=== PATIENT | male | born 1940 | race Caucasian/White ===

== ENCOUNTER 2018-10-07 22:12 | Emergency (ER) | payer MEDICARE, OTHER ==
--- NOTE | 2018-10-07 22:47 | RAD ---
RIGHT SHOULDER: 10/07/18 Three views. HISTORY: Right shoulder pain. Humeral head is normally positioned. AC joint normally aligned. Mild spurring at the AC joint. Minima l degenerative change at the glenohumeral joint. No fracture or dislocation. IMPRESSION: Mild degenerative change. No acute abnormality. POS: [facility]
== END 2018-10-07 23:27 | disposition home or self-care (01) ==
LOC: SCSER 22:12
DX: M25.511 Pain in right shoulder (principal); G89.29 Other chronic pain; F17.210 Nicotine dependence, cigarettes, uncomplicated

== ENCOUNTER 2019-02-09 13:12 | Emergency (ER) | payer MEDICARE, OTHER ==
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
[2019-02-09] MEDS ORDERED: traMADol HCl 50 MG TAB ONE (14:34)
== END 2019-02-09 16:06 | disposition home or self-care (01) ==
LOC: ERS 13:12
DX: S23.41XA Sprain of ribs, initial encounter (principal); E78.5 Hyperlipidemia, unspecified; I10 Essential (primary) hypertension; F17.210 Nicotine dependence, cigarettes, uncomplicated; Z79.899 Other long term (current) drug therapy; V89.2XXA Person injured in unspecified motor-vehicle accident, traffic, initial encounter
CPT/HCPCS: 71046

== ENCOUNTER 2019-04-12 08:26 | Outpatient (CLI) | payer MEDICARE, OTHER ==
--- NOTE | 2019-04-12 09:31 | CT ---
CT OF THE ABDOMEN AND PELVIS WITH IV CONTRAST INDICATION: Bowel movements every 4-6 days with weight loss and loss of appetite COMPARISON: None FINDINGS: ABDOMEN: Lung bases: There is prominent bulla involving the right lower extremity. Liver: No focal lesion. Gallbladder: Contracted Pancreas: Normal. Adrenal glands: Normal. Spleen: There is a new subcapsular hypodense collection measuring 6.5 cm in length and 0.8 cm in widt h. There are numerous calcified granuloma within the spleen. Kidneys and ureters: There are bilateral renal cysts Vasculature: There are moderate vascular calcifications seen involving the visualized vasculature. Lymph nodes:No lymphadenopathy. Free fluid in abdomen:There are partially calcified nodule seen involving the anterior mid abdomen, s ubjacent to the umbilicus, within the omentum, measuring 2.8 cm. Additional calcified nodule seen within the left aspect of the omentum on image 51 series 2. Additional noncalcified area of fat necro sis is seen on the right aspect of the omentum on image 48 of series 2. Additional calcifications seen involving the right aspect of the omentum on image 57 of series 2. PELVIS: Small and large bowel: There is a mild amount retained stool within the colon. Appendix:Normal Bladder: Mild bladder wall thickening with perivesicular fat stranding Rectal and perirectal soft tissues:Normal. Reproductive structures: The prostate is enlarged measuring 5.3 cm Free fluid in pelvis: No free fluid is evident. Lymphadenopathy pelvis: No lymphadenopathy is evident. Osseous structures: No acute osseous abnormality. No destructive osteolytic or osteoblastic lesion i s identified. There is scattered degenerative and osteoarthritic changes. Soft tissues:Normal. IMPRESSION: 1. Mild bladder wall thickening with perivesicular fat stranding is suspicious for cystitis. 2. Hypodense subcapsular splenic collection. This is nonspecific but can be seen following a traumati c injury. Recommend correlation with patient's history. May reflect a resolving subcapsular hematoma. 3. Scattered areas of omental infarcts involving the anterior abdomen. These can also be related to p rior trauma or inflammation. 4. Bullous emphysematous change seen involving the right lung base. 5. Prostate enlargement
== END 2019-04-12 08:27 | disposition home or self-care (01) ==
LOC: SCSCT 08:26
PROVIDERS: ATTEND Family Medicine
DX: R63.0 Anorexia (principal); R63.4 Abnormal weight loss; R19.8 Other specified symptoms and signs involving the digestive system and abdomen; N32.89 Other specified disorders of bladder; N40.0 Benign prostatic hyperplasia without lower urinary tract symptoms; J43.9 Emphysema, unspecified; K55.069 Acute infarction of intestine, part and extent unspecified
CPT/HCPCS: 74177

== ENCOUNTER 2019-06-04 14:19 | Outpatient (CLI) | payer MEDICARE, OTHER ==
--- NOTE | 2019-06-04 14:46 | RAD ---
EXAM: Chest 2 views: HISTORY: Pneumonia COMPARISON: 02/09/2019 FINDINGS: There is a normal-sized cardiomediastinal silhouette. Atherosclerotic calcifications are seen in the aorta. Calcified granuloma is seen in the right lower lobe. Bullous changes are seen in the right lung base. The bones are unremarkable. IMPRESSION: Stable exam
== END 2019-06-04 14:20 | disposition home or self-care (01) ==
LOC: SCSRAD 14:19
PROVIDERS: ATTEND Family Medicine
DX: J18.9 Pneumonia, unspecified organism (principal)
CPT/HCPCS: 36415; 71046; 80053; 85025

== ENCOUNTER 2019-06-08 05:48 | Day surgery (SDC) | payer MEDICARE, OTHER ==
[2019-06-07 12:26] VITALS: BMI 26.7
[2019-06-08 07:07] LABS: #Lymphocytes 1.3 thou/uL (1.20-3.40); #Monocytes 0.6 thou/uL (0.11-0.59); %Basophils 0.2 % (0.0-1.0); %Eosinophils 0.8 % (0.0-10.0); %Lymphocytes 22.2 % (21.0-51.0); %Monocytes 9.9 % (0.0-10.0); %Neutrophils 66.9 % (42.0-75.0); Hemoglobin 10.7 g/dL (14.0-18.0); Mean Corpuscular HGB CONC 33.5 g/dL (32.0-36.0); Mean Corpuscular Hemoglobin 34.7 pg (27.0-31.0); Mean Platelet Volume 7.3 fL (7.4-10.4); Platelet Count 258 thou/uL (130-400); RBC Distribution Width 12.9 % (11.5-14.5); White Blood Cell (WBC) Count 5.9 thou/uL (4.8-10.8)
[2019-06-08 07:09] LABS: INR-International Normal Ratio 1.2; PTT 38.6 SEC (22.9-36.1); Prothrombin Time 14.7 SEC (12.0-14.7)
[2019-06-08 07:22] LABS: Anion Gap 12 mmol/L (10-20); BUN (Urea Nitrogen) 42 mg/dL (8.4-25.7); Calc. Creatinine Clearance 38 mL/min (70-130); Calcium 8.9 mg/dL (7.8-10.44); Carbon Dioxide 25 mmol/L (23-31); Chloride 104 mmol/L (98-107); Estimated GFR-MDRD 43; Glucose 97 mg/dL (83-110); Potassium 4.6 mmol/L (3.5-5.1); Sodium 136 mmol/L (136-145)
[2019-06-08] MEDS ORDERED: PROPOFOL 20 ML ONE (07:25)
--- NOTE | 2019-06-08 11:22 | OP ---
DATE OF PROCEDURE: 06/08/2019 PROCEDURE PERFORMED: Cardioversion. REASON FOR PROCEDURE: Mr. Cenetno is an 78-year-old gentleman with history of newly found atypical atrial flutter, noted in 04/2019. He has been placed on Eliquis. DIANNA prior to the procedure demonstrates no intracardiac clots, moderate left atrial enlargement. DESCRIPTION OF PROCEDURE: The patient received propofol by anesthesia specialist. After adequate level of sedation achieved, a standard external pads were attached to the patient, through which a synchronized 150 joule delivered, which promptly converted the patient back to sinus rhythm. Rate about 84 beats per minute. First-degree AV block with occasional second-degree Mobitz type I block is seen. CONCLUSION: Successful cardioversion. PLAN: Continue anticoagulation with apixaban 2.5 twice a day as well as aspirin. Monitor for recurrent arrhythmia. Consider anticoagulation agents versus ablation if recurrent. Job ID: [id number]
--- NOTE | 2019-06-09 15:57 | ECHO ---
DATE OF PROCEDURE: 06/08/19 REFERRING PHYSICIAN: Dr. Lou REASON FOR PROCEDURE: The patient is an 78-year-old gentleman with history of atypical atrial flutter. First noted in 2009. He has preserved LVEF on a previous scan before and has initiated Eliquis for anticoagulatio n. To have DIANNA To rule out intracardiac clots prior to a planned cardioversion to assess the cardiac structures. PROCEDURE: The patient received Propofol by Anesthesia specialist. After adequate level of sedation achieved, a standard transesophageal echocardiogram probe was passed into the esophagus without diff iculty. Patient tolerated the procedure well, no complications noted. RESULTS: Left atrium is moderately enlarged about 4.7 cm in horizontal diameter. The left atrial appendage we ll visualized contains no clots. The left atrial appendage velocities are reduced about 30 to 40 cm/s . Four out of four pulmonary veins were seen without stenosis. The mitral valve has mild regurgitati on only. Tricuspid valve has mild regurgitation. The pulmonary valve appears to be normal. The aorti c valve has three leaflets without regurgitation or stenosis. Mild thickening noted only. Left ventricular systolic function is preserved. LV size is normal. Wall thickness normal. The right sided chamber is nondilated. Interatrial and interventricular septum is free of defect. Pericardial s pace without effusion. The visualized portion of ascending and descending aorta without aneurysm or dissection. The descending aorta with significant adherent circumferential atheroma noted on it. CONCLUSION: 1. No intracardiac clots. 2. Moderate left atrial enlargement. 3. Mild mitral regurgitation and tricuspid regurgitation only. 4. Normal left ventricular systolic function. PLAN: Proceed with cardioversion.
== END 2019-06-08 09:57 | disposition home or self-care (01) ==
LOC: CCL 05:48
PROVIDERS: ATTEND Internal Medicine Cardiovascular Disease
PROC: 5A2204Z Restoration of Cardiac Rhythm, Single (ICD-10-PCS; principal; 2019-06-08)
PROC: B24BZZ4 Ultrasonography of Heart with Aorta, Transesophageal (ICD-10-PCS; 2019-06-08)
DX: I48.4 Atypical atrial flutter (principal); I44.1 Atrioventricular block, second degree; I44.0 Atrioventricular block, first degree; I08.1 Rheumatic disorders of both mitral and tricuspid valves; I25.10 Atherosclerotic heart disease of native coronary artery without angina pectoris; I25.82 Chronic total occlusion of coronary artery; J44.9 Chronic obstructive pulmonary disease, unspecified; G47.33 Obstructive sleep apnea (adult) (pediatric); I10 Essential (primary) hypertension; E78.00 Pure hypercholesterolemia, unspecified; Z87.891 Personal history of nicotine dependence; Z79.01 Long term (current) use of anticoagulants; Z79.82 Long term (current) use of aspirin; Z79.899 Other long term (current) drug therapy; Z88.0 Allergy status to penicillin
CPT/HCPCS: 80048; 85025; 85610; 85730; 92960; 93005; 93010; 93312; J2704

== ENCOUNTER 2019-08-28 09:18 | Inpatient (IN) | payer MEDICARE, OTHER ==
[2019-08-28 10:01] LABS: #Monocytes 0.5 thou/uL (0.11-0.59); #Neutrophils 2.7 thou/uL (1.40-6.50); %Basophils 0.7 % (0.0-1.0); %Monocytes 12.3 % (0.0-10.0); Hemoglobin 6.5 g/dL (14.0-18.0); Red Blood Cell (RBC) Count 1.89 mill/uL (4.70-6.10); White Blood Cell (WBC) Count 4.3 thou/uL (4.8-10.8)
[2019-08-28 10:12] LABS: ALT (SGPT) 7 U/L (8-55); AST (SGOT) 14 U/L (5-34); Alkaline Phosphatase 43 U/L (40-110); Anion Gap 14 mmol/L (10-20); BUN (Urea Nitrogen) 27 mg/dL (8.4-25.7); Bilirubin, Total 0.4 mg/dL (0.2-1.2); Calc. Creatinine Clearance 0 mL/min (70-130); Calcium 8.3 mg/dL (7.8-10.44); Carbon Dioxide 22 mmol/L (23-31); Chloride 107 mmol/L (98-107); Estimated GFR-MDRD 45; Globulin 2.2 g/dL (2.4-3.5); Glucose 110 mg/dL (83-110); Lipase 22 U/L (8-78); Potassium 4.5 mmol/L (3.5-5.1); Protein, Total 6.2 g/dL (5.8-8.1); Sodium 138 mmol/L (136-145)
[2019-08-28 10:24] LABS: MDiff Complete? YES; Macrocytosis SLIGHT = 6-15 cells (100X) (0-5/hpf); Mean Corpuscular HGB CONC 32.2 g/dL (32.0-36.0); Mean Corpuscular Hemoglobin 34.1 pg (27.0-31.0); Mean Platelet Volume 6.6 fL (7.4-10.4); Platelet Count 254 thou/uL (130-400); RBC Distribution Width 12.8 % (11.5-14.5)
[2019-08-28] MEDS ORDERED: Pantoprazole 40 MG VIAL ONE (10:26)
[2019-08-28] MEDS ORDERED: Acetaminophen 325 MG TAB PO PRN (11:15)
[2019-08-28] MEDS ORDERED: Ondansetron PF 4 MG/2 ML Vial IVP PRN (11:15)
[2019-08-28 15:07] VITALS: BMI 28.3
--- NOTE | 2019-08-28 21:13 | HP ---
CHIEF COMPLAINT: Feeling dizzy and weak. HISTORY OF PRESENT ILLNESS: The patient is an 78-year-old male with past medical history of hyperlipidemia, hypertension, peripheral vascular disease, and BPH, who presented to his PCP' office yesterday with concerns of feeling dizzy and weak. Blood work was drawn and the patient was sent home. He was called today from his PCP office and was asked to go to the emergency department since his hemoglobin level was found to be low. In the ER, the patient was found to be pale, but in no acute distress, and his hemoglobin level was found to be 6.5. 2 units of packed RBCs were given in the emergency department. The patient complained of nausea and vomiting, but denied any hematemesis. He also denies any melena, but says that he was not paying attention. He does not recall when was the last time he underwent a colonoscopy. He denies chest pain, palpitations, shortness of breath, or syncope. REVIEW OF SYSTEMS: Negative except as noted in HPI. PAST MEDICAL HISTORY: As noted above. PAST SURGICAL HISTORY: This includes appendectomy, hernia repair, vasectomy, and circumcision. SOCIAL HISTORY: The patient drinks socially every week, denies illicit drug use, he is currently a half pack a day tobacco smoker. ALLERGIES: PENICILLIN. PHYSICAL EXAMINATION: GENERAL: The patient is alert and oriented x3. HEENT: His head is normocephalic and atraumatic. Extraocular muscles are intact. Conjunctiva is pale. NECK: Supple. CHEST: Clear to auscultation bilaterally. CARDIOVASCULAR: Revealed regular rate and rhythm. No murmurs, rubs, or gallops, normal S1, S2. ABDOMEN: Soft, nontender, nondistended. EXTREMITIES: Showing no peripheral edema. NEUROLOGICAL: Intact. ASSESSMENT AND PLAN: 1. Anemia that is symptomatic. Unclear if this is due to occult bleeding. Protonix drip was initiated and I have discussed the case with Dr. Philippe Magaña who agreed to consult. We should recheck hemoglobin tomorrow after his transfusions. 2. Possible occult gastrointestinal bleeding. 3. Hyperlipidemia. 4. Hypertension. 5. Benign prostatic hypertrophy. Job ID: [id number]
--- NOTE | 2019-08-29 00:51 | CON ---
DATE OF CONSULTATION: 08/28/2019 REASON FOR CONSULTATION: Severe anemia. HISTORY OF PRESENT ILLNESS: Gianluca Centeno is an 78-year-old man who was admitted to the hospital earlier today, sent from his primary care physician's office for severe symptomatic anemia. He has previously seen my colleague, Dr. Rincon, for a screening colonoscopy back in 2009, which was normal except for sigmoid diverticulosis. He has not had any endoscopy in the meantime. He denies any chronic gastrointestinal symptoms except for a tendency towards constipation with a bowel movement 2 to 3 times per week or so. He does not take any laxatives. His medication list includes Eliquis, which he tells me he has been on for just the past 3 months or so, though he cannot really give me a reason. Note he does have chronic venous insufficiency. At any rate, he denies any hematochezia or hematemesis. He says his bowel movements are sometimes dark in color. Sometimes in the mornings when he blows his nose, there will be a scant amount of blood on the tissue paper, but never enough to be alarming. He does feel that he will bleed excessively if he gets a cut in the skin. A few days ago, he was having a bit of upper abdominal discomfort and had a few episodes of nonbloody emesis, but aside from that, he does not have any chronic GI symptoms and he is asymptomatic now except for fatigue. Upon presentation, his hemoglobin was very low at 6.5. This is a macrocytic anemia with MCV 106, BUN was elevated to 27, creatinine 1.49. He is hemodynamically stable, tolerating a liquid diet. He has no other symptoms. No known family history of GI malignancy. He was started on a pantoprazole drip. 2 units of blood were ordered, which he is now getting. He is hemodynamically stable. Eliquis is being held. REVIEW OF SYSTEMS: Full review of systems including constitutional, head, eyes, ears, nose, throat, GI, , cardiovascular, respiratory, musculoskeletal, neurologic systems is negative except as noted in the HPI. PAST MEDICAL HISTORY: BPH, hypertension, hyperlipidemia, chronic venous insufficiency, appendectomy, vasectomy, hernia repair, sigmoid diverticulosis demonstrated on last colonoscopy in 2009. ALLERGIES: PENICILLIN. OUTPATIENT MEDICATIONS: Protonix 40 mg daily, Eliquis, spironolactone, hydrochlorothiazide, montelukast, bupropion, metoprolol, enalapril, finasteride. Inpatient medications; Protonix drip and Zofran. FAMILY HISTORY: Negative for known GI malignancies. SOCIAL HISTORY: The patient has smoked about 1/2 pack of cigarettes per day for the past 30 years. Alcohol use is social. No drug use. PHYSICAL EXAMINATION: VITAL SIGNS: Temperature 98.4, pulse 75, blood pressure 113/57, 99% oxygen saturation on room air. GENERAL: 78-year-old man, sitting up in the edge of the bed comfortably, in no distress. He appears well, nontoxic, though a bit pale. SKIN: He is pale. No jaundice. No rashes were palpable. He has several superficial abrasions to the skin of the hands as well as the shins. EYES: No scleral icterus. Extraocular movements intact. ENT: Mucous membranes moist. No oral lesions. LYMPH: No submandibular or supraclavicular lymphadenopathy. THYROID: Nontender to palpation. HEART: Regular rate and rhythm. LUNGS: Clear to auscultation bilaterally. ABDOMEN: Bowel sounds present. Soft, nontender to palpation throughout. EXTREMITIES: No peripheral edema. VESSELS: Radial pulses 2+ bilaterally. NEURO: Cranial nerves 2-12 intact bilaterally. No focal deficits. LABORATORY STUDIES: Hemoglobin 6.5, MCV 106, WBC 4.3, platelets 254. Sodium 138, potassium 4.5, BUN 27, creatinine 1.49, glucose 110, lipase 22. LFTs all normal with total bilirubin 0.4, alkaline phosphatase 43, AST 14, ALT 7. ASSESSMENT/PLAN: 1. Anemia, severe, symptomatic, macrocytic. 2. Chronic anticoagulation, on Eliquis. The patient has a severe macrocytic anemia without any significant overt bleeding to explain it. Certainly, he is at risk for significant GI occult bleeding lesion on the Eliquis for the past few months, despite the lack of chronic GI symptoms. It is unclear whether his occasionally dark stools really represent melena or not, but certainly there is no evidence of brisk GI bleeding. I agree with blood transfusion today. Trend the H and H. We will order iron studies, B12, and folic acid to be drawn with morning labs. Please hold the Eliquis. Endoscopic investigation would be reasonable this admission. We will have the patient on a clear-liquid diet tomorrow in anticipation of probable bowel prep tomorrow evening and EGD and colonoscopy the following day. I discussed this with the patient in detail and he agrees with the plan. Thank you for the consultation. Please call anytime with questions or concerns. Job ID: [id number]
[2019-08-29 05:20] LABS: #Eosinphils 0.1 thou/uL (0.0-0.7); #Lymphocytes 1.4 thou/uL (1.20-3.40); #Monocytes 0.8 thou/uL (0.11-0.59); #Neutrophils 3.4 thou/uL (1.40-6.50); %Basophils 0.5 % (0.0-1.0); %Eosinophils 1.8 % (0.0-10.0); %Lymphocytes 24.4 % (21.0-51.0); %Monocytes 13.8 % (0.0-10.0); %Neutrophils 59.5 % (42.0-75.0); Hemoglobin 7.1 g/dL (14.0-18.0); Mean Corpuscular HGB CONC 31.9 g/dL (32.0-36.0); Mean Corpuscular Hemoglobin 33.6 pg (27.0-31.0); Mean Platelet Volume 7.2 fL (7.4-10.4); Platelet Count 256 thou/uL (130-400); RBC Distribution Width 13.1 % (11.5-14.5); Red Blood Cell (RBC) Count 2.11 mill/uL (4.70-6.10); White Blood Cell (WBC) Count 5.7 thou/uL (4.8-10.8)
[2019-08-29 05:43] LABS: Anion Gap 12 mmol/L (10-20); BUN (Urea Nitrogen) 24 mg/dL (8.4-25.7); Calc. Creatinine Clearance 48 mL/min (70-130); Calcium 8.6 mg/dL (7.8-10.44); Carbon Dioxide 22 mmol/L (23-31); Chloride 109 mmol/L (98-107); Estimated GFR-MDRD 53; Glucose 96 mg/dL (83-110); Iron 83 ug/dL (65-175); Iron Binding Capacity, Total 353 mcg/dL (261-462); Potassium 4.4 mmol/L (3.5-5.1); Sodium 139 mmol/L (136-145)
[2019-08-29 06:11] LABS: Ferritin 59.23 ng/mL (22-322)
[2019-08-29 06:13] LABS: Vitamin B12 Greater than 2000 pg/mL (211-911)
[2019-08-29] MEDS: Pantoprazole 80 MG, Admixture Fee 1 EACH in Sodium Chloride 0.9% 100 ML IVPB SCH ×2 (08:40→17:05)
--- NOTE | 2019-08-29 12:18 | PDOC.HOSPP ---
- Subjective Encounter Date: 08/29/19 Subjective: No new complaints. - Objective Vital Signs & Weight: Vital Signs (12 hours) Temp Pulse Resp BP Pulse Ox 08/29/19 03:05 98.5 F 70 16 122/64 97 Weight Weight 165 lb I&O: 08/28/19 08/29/19 08/30/19 06:59 06:59 06:59 Intake Total 1965 Balance 1965 Result Diagrams: 08/29/19 05:08 08/29/19 05:08 Hospitalist ROS - Medication Medications: Active Medications Generic Name Dose Route Start Last Admin Trade Name Freq PRN Reason Stop Dose Admin Pantoprazole Sodium 80 mg/ 100 mls @ 10 mls/hr 08/28/19 10:45 08/29/19 08:40 Miscellaneous Medication 1 IVPB 100 mls each/ Sodium Chloride INF PADMINI Administration - Exam General Appearance: awake alert ENT: normocephalic atraumatic Neck: supple Respiratory: normal chest expansion, no tachypnea Extremities: no cyanosis, no clubbing Neurological: cranial nerve grossly intact, no weakness Psychiatric: A&O x 3 Hosp A/P (1) Acute anemia Code(s): D64.9 - ANEMIA, UNSPECIFIED Status: Acute (2) GI bleed Code(s): K92.2 - GASTROINTESTINAL HEMORRHAGE, UNSPECIFIED Status: Acute (3) Hyperlipidemia Code(s): E78.5 - HYPERLIPIDEMIA, UNSPECIFIED Status: Acute (4) HTN (hypertension) Code(s): I10 - ESSENTIAL (PRIMARY) HYPERTENSION Status: Acute - Plan Hemoglobin level improved to 7.1 after he received a unit of blood. Another unit will be transfused today. Iron, Ferritin, B12, and Folate are not low. Eliquis on hold. GI planning on EGD and Colonoscopy.
--- NOTE | 2019-08-29 13:39 | PRG ---
DATE OF SERVICE: 08/29/2019 SUBJECTIVE: The patient is without complaint. He denies having any nausea, vomiting, or abdominal pain. There has been no overt GI bleeding since admission. He feels better with 1 unit of RBC transfusion, but has not gotten out of bed since admission. OBJECTIVE: VITAL SIGNS: Temperature is 98.5, blood pressure 122/64, pulse is 70. GENERAL: He is alert, pale, but in no distress. HEENT: Shows anicteric sclerae. Oropharynx is clear. CV: Shows normal S1 and S2. Regular rate and rhythm. CHEST: Shows a breath sounds. ABDOMEN: Soft, mildly protuberant, but nontender. No mass or organomegaly. He has active bowel sounds. EXTREMITIES: Shows no edema. LABORATORY DATA: WBCs 5.7, hemoglobin 7.1 (up from 6.5 after 1 unit RBC), MCV 105, and platelet count of 256. Electrolytes within normal range. Creatinine 1.3, BUN of 24. Ferritin is 59, TIBC 353, iron 83, and vitamin B12 greater than 2000 and folic acid 17.5. ASSESSMENT: Acute on chronic anemia, rule out acute component of gastrointestinal blood loss as the patient has been on Eliquis for the last 3 months. No visible or overt GI bleeding has noted. RECOMMENDATION: We will proceed with bowel prep today, scheduled upper endoscopy and colonoscopy in a.m. Job ID: [id number]
[2019-08-29] MEDS ORDERED: GoLYTELY 4,000 ml Bottle PO SCH (17:00)
[2019-08-30 05:19] LABS: #Lymphocytes 1.4 thou/uL (1.20-3.40); #Monocytes 0.7 thou/uL (0.11-0.59); #Neutrophils 2.9 thou/uL (1.40-6.50); %Basophils 0.7 % (0.0-1.0); %Eosinophils 0.9 % (0.0-10.0); %Lymphocytes 27.5 % (21.0-51.0); %Monocytes 14.1 % (0.0-10.0); %Neutrophils 56.8 % (42.0-75.0); Hemoglobin 7.4 g/dL (14.0-18.0); Mean Corpuscular HGB CONC 32.2 g/dL (32.0-36.0); Mean Corpuscular Hemoglobin 33.1 pg (27.0-31.0); Mean Platelet Volume 7.3 fL (7.4-10.4); Platelet Count 233 thou/uL (130-400); RBC Distribution Width 14.1 % (11.5-14.5); Red Blood Cell (RBC) Count 2.24 mill/uL (4.70-6.10)
[2019-08-30 05:41] LABS: Anion Gap 12 mmol/L (10-20); BUN (Urea Nitrogen) 17 mg/dL (8.4-25.7); Calc. Creatinine Clearance 54 mL/min (70-130); Calcium 8.1 mg/dL (7.8-10.44); Carbon Dioxide 24 mmol/L (23-31); Chloride 109 mmol/L (98-107); Estimated GFR-MDRD 61; Glucose 95 mg/dL (83-110); Potassium 3.9 mmol/L (3.5-5.1); Sodium 141 mmol/L (136-145)
[2019-08-30] MEDS ORDERED: PROPOFOL 200 MG/20 ML VIAL ONE (10:49)
[2019-08-30] MEDS ORDERED: EPHEDRINE 25 MG/5 ML SYRINGE ONE (10:49)
--- NOTE | 2019-08-30 14:43 | PQF ---
CLINICAL DOCUMENTATION IMPROVEMENT CLARIFICATION FORM: ICD-10 Updated PLEASE DO AN ADDENDUM TO THE PROGRESS NOTE WITH ANY DOCUMENTATION UPDATES OR ADDITIONS AND CARRY THROUGH TO DC SUMMARY. THANK YOU. DATE: 08/30/19 ATTN: DR. FORD Please exercise your independent, professional judgment in responding to the clarification form. Clinical indicators are provided on the bottom of this form for your review Please check appropriate box(s): [ ] Acute blood loss anemia [ >] Chronic Anemia: [ > ] Blood loss [ ] Hemolytic [ ] Simple [ ] Due to Vitamin B12 Deficiency [ ] Other [ ] Anemia of Chronic Disease (please specify) [ ] Anemia due to Neoplasm: [ ] Primary [ ] Secondary [ ] Anemia due to (please choose): [ ] Due to Chemotherapy [ ] Due to Radiotherapy [ ] Due to Immunotherapy [ ] Other diagnosis [ ] Unable to determine In addition, please specify: Present on Admission (POA): [ > ] Yes [ ] No [ ] Unable to determine For continuity of documentation, please document condition throughout progress notes and discharge summary. Thank You. CLINICAL INDICATORS - SIGNS / SYMPTOMS / LABS / RESULTS AND LOCATION IN EMR H&P: "ACUTE ANEMIA" HGN/HCT 08/27: 6.5 / 20.1 HGN/HCT 08/27: 7.1 / 22.2 RISKS: ELIQUIS (PN 08/28 - [facility]) TREATMENT: GI CONSULT 08/29 BLOOD TRANSFUSIONS X2 EGD/COLONOSCOPY 08/29 [employer] Win[employer] (This form is maintained as a part of the permanent medical record) 2014 [employer]. All Rights Reserved [email or web address]
--- NOTE | 2019-08-30 15:35 | PDOC.HOSPP ---
- Subjective Encounter Date: 08/30/19 Subjective: No new complaints. - Objective Vital Signs & Weight: Vital Signs (12 hours) Temp Pulse Resp BP BP Pulse Ox 08/30/19 13:40 97.0 F L 64 18 106/59 L 100 08/30/19 08:00 97.9 F 55 L 18 117/64 94 L 08/30/19 07:54 94 L Weight Weight 165 lb I&O: 08/29/19 08/30/19 08/31/19 06:59 06:59 06:59 Intake Total 1965 720 Balance 1965 720 Result Diagrams: 08/30/19 05:02 08/30/19 05:02 Hospitalist ROS - Medication Medications: Active Medications Generic Name Dose Route Start Last Admin Trade Name Mallory PRN Reason Stop Dose Admin Sodium Chloride 10 ml 08/30/19 09:00 08/30/19 07:54 Flush - Normal Saline IVF 10 ml Q12HR PADMINI Administration - Exam General Appearance: awake alert ENT: normocephalic atraumatic Neck: supple Heart: RRR Respiratory: normal chest expansion, no tachypnea Neurological: cranial nerve grossly intact, no focal deficits Psychiatric: normal affect, A&O x 3 Hosp A/P (1) Acute anemia Code(s): D64.9 - ANEMIA, UNSPECIFIED Status: Acute (2) GI bleed Code(s): K92.2 - GASTROINTESTINAL HEMORRHAGE, UNSPECIFIED Status: Acute (3) Hyperlipidemia Code(s): E78.5 - HYPERLIPIDEMIA, UNSPECIFIED Status: Acute (4) HTN (hypertension) Code(s): I10 - ESSENTIAL (PRIMARY) HYPERTENSION Status: Acute - Plan 08/28: Hemoglobin level improved to 7.1 after he received a unit of blood. Another unit will be transfused today. Iron, Ferritin, B12, and Folate are not low. Eliquis on hold. GI planning on EGD and Colonoscopy. 08/29: Hemoglobin is 7.4 today. Transfuse 1 unit of PRBC. Awaiting report from endoscopy.
--- NOTE | 2019-08-30 18:35 | OP ---
DATE OF PROCEDURE: 08/30/2019 PREPROCEDURE DIAGNOSES: 1. Macrocytic anemia, abrupt drop from 13 last year to 10.7 in May to 6.5 on 08/28/2019. 2. Chronic anticoagulation. 3. Normal B12 and folate. 4. Normal iron studies. POSTPROCEDURE DIAGNOSIS: 1. Normal esophagogastroduodenoscopy. 2. Bleeding mucosa pinpoint in the hepatic flexure, cauterized with 7-Spanish heater probe, likely related to chronic anticoagulation mucosal bleed. PROCEDURES: EGD and colonoscopy with control of hemorrhage. ANESTHESIA: TIVA. RECOMMENDATIONS: 1. Consider other options of anticoagulation or changing anticoagulants. This will likely recur in the future. 2. Avoid all anticoagulation for 7 days. 3. We will defer anticoagulation management otherwise to Cardiology. DESCRIPTION OF PROCEDURE: After the patient was informed of the risks, benefits, possible complications of endoscopy including perforation, reaction to medication, and aspiration, informed consent was obtained. The patient was brought to endoscopy suite, where he was sedated in a gradual fashion. Once he was comfortable, a bite block was placed inside the orifice. The endoscope was advanced to the esophagus, stomach, and second and third portions of the duodenum and slowly removed. The esophagus, stomach, and duodenum were all normal. No AVMs or bleeding sites identified. There was no old blood in the upper gastrointestinal tract. Retroflexed views in the stomach were normal. The scope was then removed. The patient was returned to the room and rectal exam was performed. The endoscope was advanced to the anal canal through the colon to the cecum. The exam was very difficult. He had a looping redundant colon and copious amounts of old and fresh blood in the colon which had to be irrigated. At one point in time, the insufflation on the scope malfunctioned. The scope had to be removed and repaired and then we could start the case again. After we cleared the colon of all blood, we were able to locate a single mucosal area of bleeding. This was pinpoint and consistent with mucosal bleed that is often seen with chronic anticoagulation. There were no overt AVMs in this area. There was no overt Dieulafoy like vessel. This was cauterized with 7-Spanish heater probe and the bleeding stopped. The remainder of the colon could be resurveyed again with the colon clean. There was no evidence of masses, lesions, or AVMs or diverticula. Retroflexed views in the rectum were normal except for small internal hemorrhoids which were nonbleeding. The scope was removed. The patient tolerated the procedure well. There were no complications. Job ID: [id number]
[2019-08-31 05:29] LABS: #Eosinphils 0.1 thou/uL (0.0-0.7); #Lymphocytes 1.5 thou/uL (1.20-3.40); #Monocytes 0.8 thou/uL (0.11-0.59); #Neutrophils 3.7 thou/uL (1.40-6.50); %Basophils 0.3 % (0.0-1.0); %Eosinophils 1.5 % (0.0-10.0); %Lymphocytes 24.5 % (21.0-51.0); %Monocytes 12.5 % (0.0-10.0); %Neutrophils 61.2 % (42.0-75.0); Hemoglobin 8.9 g/dL (14.0-18.0); Mean Corpuscular HGB CONC 33.5 g/dL (32.0-36.0); Mean Corpuscular Hemoglobin 34.2 pg (27.0-31.0); Mean Platelet Volume 6.9 fL (7.4-10.4); Platelet Count 231 thou/uL (130-400); RBC Distribution Width 14.4 % (11.5-14.5)
[2019-08-31 05:49] LABS: Anion Gap 12 mmol/L (10-20); BUN (Urea Nitrogen) 18 mg/dL (8.4-25.7); Calc. Creatinine Clearance 45 mL/min (70-130); Calcium 8.2 mg/dL (7.8-10.44); Carbon Dioxide 25 mmol/L (23-31); Chloride 106 mmol/L (98-107); Estimated GFR-MDRD 49; Glucose 94 mg/dL (83-110); Potassium 4.7 mmol/L (3.5-5.1); Sodium 138 mmol/L (136-145)
[2019-08-31 11:31] VITALS: BP 120/61; TEMP 97.8
--- NOTE | 2019-09-01 04:33 | DIS ---
DATE OF ADMISSION: 08/28/2019 DATE OF DISCHARGE: 08/31/2019 DISCHARGE DIAGNOSES: 1. Acute anemia due to gastrointestinal blood loss. 2. Gastrointestinal bleeding due to colonic mucosal bleed. 3. Hyperlipidemia. 4. Hypertension. DISCHARGE MEDICATIONS: 1. Protonix 40 mg orally daily. 2. Aspirin 81 mg orally daily. 3. Bupropion 150 mg orally daily. 4. Donepezil 5 mg orally daily. 5. Enalapril 5 mg orally daily. 6. Finasteride 5 mg orally daily. 7. Hydrochlorothiazide 25 mg orally daily. 8. Metoprolol succinate 25 mg orally daily. 9. Singulair 10 mg orally daily. 10. Sertraline 50 mg orally daily. 11. Aldactone 50 mg orally twice daily. 12. Tamsulosin 0.4 mg orally daily. HISTORY OF PRESENT ILLNESS AND HOSPITAL COURSE: The patient is an 78-year-old male with past medical history of hyperlipidemia, hypertension, peripheral vascular disease, and BPH, who presented to the PCP's office yesterday, because of feeling dizzy and weak. His hemoglobin level was checked and was found to be low at 6.5 and subsequently he was sent to the ER. In the ER, he was given 2 units of packed RBCs and was admitted to the hospital for further evaluation. The patient underwent EGD and colonoscopy. EGD did not show any abnormalities and colonoscopy showed mucosa bleeding at the hepatic flexure, which was cauterized with a 7-Setswana heater probe. 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 On the day of discharge, the patient is back to his baseline. He received a total of 3 units of packed RBCs throughout his hospital stay. Job ID: [id number]
== END 2019-08-31 15:00 | disposition home or self-care (01) | DRG 813 ==
LOC: ERS 09:18 → SJJU 11:23
PROVIDERS: ADMIT Internal Medicine; ATTEND Internal Medicine
PROC: 0W3P8ZZ Control Bleeding in Gastrointestinal Tract, Via Natural or Artificial Opening Endoscopic (ICD-10-PCS; principal; 2019-08-30)
PROC: 0DJ08ZZ Inspection of Upper Intestinal Tract, Via Natural or Artificial Opening Endoscopic (ICD-10-PCS; 2019-08-30)
PROC: 30233N1 Transfusion of Nonautologous Red Blood Cells into Peripheral Vein, Percutaneous Approach (ICD-10-PCS; 2019-08-30)
DX: D68.32 Hemorrhagic disorder due to extrinsic circulating anticoagulants (principal); K92.2 Gastrointestinal hemorrhage, unspecified; D62 Acute posthemorrhagic anemia; E78.5 Hyperlipidemia, unspecified; I10 Essential (primary) hypertension; I73.9 Peripheral vascular disease, unspecified; N40.0 Benign prostatic hyperplasia without lower urinary tract symptoms; D53.9 Nutritional anemia, unspecified; F17.210 Nicotine dependence, cigarettes, uncomplicated; K64.8 Other hemorrhoids; Z90.49 Acquired absence of other specified parts of digestive tract; Z88.0 Allergy status to penicillin; Z79.01 Long term (current) use of anticoagulants
CPT/HCPCS: 36415; 36430; 80048; 80053; 82607; 82728; 82746; 83540; 83550; 83690; 85025; 86850; 86900; 86901; C9113; J2704; J3490; P9016

== ENCOUNTER 2021-09-09 08:40 | Outpatient (CLI) | payer MEDICARE, OTHER | END 2021-09-09 08:41 | disposition home or self-care (01) | LOC: RAD 08:40 | PROVIDERS: ATTEND Internal Medicine Critical Care Medicine | DX: R06.00 Dyspnea, unspecified (principal) | CPT/HCPCS: 71046 ==

== ENCOUNTER 2022-06-18 10:59 | Emergency (ER) | payer MEDICARE, OTHER ==
[2022-06-18 12:03] LABS: ALT (SGPT) 14 U/L (8-55); AST (SGOT) 24 U/L (5-34); Albumin 3.9 g/dL (3.4-4.8); Alkaline Phosphatase 45 U/L (40-110); Anion Gap 15 mmol/L (10-20); BUN (Urea Nitrogen) 33 mg/dL (8.4-25.7); Bilirubin, Total 0.7 mg/dL (0.2-1.2); Calc. Creatinine Clearance 0 mL/min (70-130); Calcium 8.7 mg/dL (7.8-10.44); Carbon Dioxide 20 mmol/L (23-31); Chloride 112 mmol/L (98-107); Estimated GFR 50; Globulin 3.1 g/dL (2.4-3.5); Glucose 83 mg/dL (83-110); Potassium 4.7 mmol/L (3.5-5.1); Sodium 142 mmol/L (136-145)
[2022-06-18 12:11] LABS: #Eosinphils 0.1 thou/uL (0.0-0.7); #Lymphocytes 1.5 thou/uL (1.20-3.40); #Monocytes 0.7 thou/uL (0.11-0.59); #Neutrophils 3.9 thou/uL (1.40-6.50); %Basophils 0.7 % (0.0-1.0); %Eosinophils 1.2 % (0.0-10.0); %Lymphocytes 23.4 % (21.0-51.0); %Monocytes 11.5 % (0.0-10.0); %Neutrophils 63.3 % (42.0-75.0); Hemoglobin 10.4 g/dL (14.0-18.0); Mean Corpuscular Hemoglobin 36.9 pg (27.0-31.0); Mean Platelet Volume 8.2 fL (7.4-10.4); Platelet Count 171 10x3/uL (130-400); RBC Distribution Width 13.1 % (11.5-14.5); Red Blood Cell (RBC) Count 2.82 mill/uL (4.70-6.10); White Blood Cell (WBC) Count 6.2 10x3/uL (4.8-10.8)
[2022-06-18 12:23] LABS: Macrocytosis SLIGHT = 6-15 cells (100X) (0-5/hpf)
[2022-06-18 13:22] LABS: Bilirubin Negative (Negative); Blood, Urine Negative (Negative); Clarity Clear (Clear); Glucose, Urine (Dipstick) Normal (Negative); Ketone, Urine Trace mg/dL (Negative); Leukocyte Negative Leu/uL (Negative); Nitrite Negative (Negative); Protein, Urine (Dipstick) 10 mg/dL (Neg-Trace); Specific Gravity, Urine 1.028 (1.002-1.036); pH, Urine 5.5 (5.0-9.0)
== END 2022-06-18 13:53 | disposition home or self-care (01) ==
LOC: ERS 10:59
DX: R39.12 Poor urinary stream (principal); I10 Essential (primary) hypertension; E78.5 Hyperlipidemia, unspecified; F17.210 Nicotine dependence, cigarettes, uncomplicated
CPT/HCPCS: 36415; 80053; 81003; 85025; 99284

== ENCOUNTER 2024-03-07 03:38 | Inpatient (IN) | payer MEDICARE, OTHER ==
[2024-03-07] MEDS ORDERED: Ondansetron PF 4 MG/2 ML Vial ONE (03:47)
[2024-03-07] MEDS ORDERED: CALCIUM GLUC 1 GM/NS 50 ML IV Bag ONE (04:49)
[2024-03-07] MEDS ORDERED: NOREPINEPHRINE 8 MG/250 ML-D5W 250 ML ONE (04:49)
[2024-03-07 05:29] LABS: PTT 30.5 sec (22.9-36.1); Prothrombin Time 13.2 sec (12.0-14.7)
[2024-03-07 05:31] LABS: ALT (SGPT) 7 U/L (8-55); AST (SGOT) 10 U/L (5-34); Albumin 2.9 g/dL (3.4-4.8); Alkaline Phosphatase 39 U/L (40-110); Anion Gap 12 mmol/L (10-20); BUN (Urea Nitrogen) 62 mg/dL (8.4-25.7); Bilirubin, Total 0.3 mg/dL (0.2-1.2); Calc. Creatinine Clearance 0 mL/min (70-130); Calcium 7.1 mg/dL (7.8-10.44); Carbon Dioxide 10 mmol/L (23-31); Chloride 114 mmol/L (98-107); Estimated GFR 20; Globulin 2.3 g/dL (2.4-3.5); Glucose 122 mg/dL (83-110); Lipase 95 U/L (8-78); Potassium 5.3 mmol/L (3.5-5.1); Protein, Total 5.2 g/dL (5.8-8.1); Sodium 131 mmol/L (136-145)
[2024-03-07 06:28] LABS: #Basophils 0.03 10x3/uL (0.0-0.2); #Eosinophils Less than 0.03 10x3/uL (0.0-0.7); %Basophils 0.2 % (0.0-1.0); %Eosinophils 0.1 % (0.0-10.0); %Lymphocytes 3.8 % (21.0-51.0); %Monocytes 5.5 % (0.0-10.0); %Neutrophils 89.9 % (42.0-75.0); Hemoglobin 8.3 g/dL (14.0-18.0); Mean Corpuscular HGB CONC 31.9 g/dL (32.0-36.0); Mean Corpuscular Hemoglobin 36.7 pg (27.0-31.0); Mean Platelet Volume 10.8 fL (7.4-10.4); Platelet Count 146 10x3/uL (130-400); RBC Distribution Width 13.5 % (11.5-14.5); Red Blood Cell (RBC) Count 2.26 mill/uL (4.70-6.10)
[2024-03-07] MEDS ORDERED: Sodium Chloride 0.9% 0 ML ONE (07:23)
[2024-03-07] MEDS ORDERED: Cefepime 2 GM VIAL ONE (07:23)
[2024-03-07 08:00] LABS: Bacteria/HPF None Seen HPF (None Seen); Bilirubin Negative (Negative); Blood, Urine Negative (Negative); CAUTI Indications for Culture Fever or rigors; Clarity Clear (Clear); Glucose, Urine (Dipstick) Normal (Negative); Ketone, Urine Negative (Negative); Leukocyte Negative Leu/uL (Negative); Nitrite Negative (Negative); Protein, Urine (Dipstick) 20 mg/dL (Neg-Trace); RBC/HPF 0-3 HPF (0-3); Specific Gravity, Urine 1.007 (1.002-1.036); Squamous Epithelial 0-3 HPF (0-3); Urobilinogen Normal mg/dL (Less than 2); WBC/HPF 0-3 HPF (0-3)
[2024-03-07 08:05] LABS: Band 2 % (5-11); Burr Cells SLIGHT = 2-5 cells HPF (0-1); Lymphocytes 4 % (21-51); Macrocytosis SLIGHT = 6-15 cells HPF (0-5); Monocytes 6 % (0-10); Neutrophil 88 % (42-75); Platelet Adequacy Comment Platelets Normal; Poikilocytosis SLIGHT = 6-15 cells HPF (0-5); Polychromasia SLIGHT = 2-3 cells HPF (0-2)
[2024-03-07 08:05] LABS: Urine Culture Reflex No No
[2024-03-07] MEDS ORDERED: Acetaminophen 325 MG TAB PO PRN (08:34)
[2024-03-07] MEDS ORDERED: traMADol HCl 50 MG TAB PO PRN (08:34)
[2024-03-07 08:39] LABS: Troponin I 0.018 ng/mL (< 0.028)
[2024-03-07 09:06] VITALS: BMI 25.1
[2024-03-07] MEDS: Sodium Chloride 0.9% 1,000 ML IV SCH ×3 (09:27→12:56)
[2024-03-07] MEDS: Vancomycin 1.5 GRAM/300 ML BAG 1.5 GM in Premix 1 BAG IVPB SCH (09:30)
[2024-03-07] MEDS: Famotidine 20 MG TAB PO SCH (09:36)
[2024-03-07] MEDS: Heparin 5,000 UNITS/ML VIAL SC SCH (09:37)
[2024-03-07] MEDS ORDERED: hydrALAZINE 20 MG/ML VIAL SLOW IVP PRN (09:50)
[2024-03-07] MEDS: Sodium Polystyrene Sulfonate 15 GM (60 mL) BOT PO SCH (10:50)
[2024-03-07 11:44] LABS: Troponin I 0.012 ng/mL (< 0.028)
[2024-03-07] MEDS: NOREPINEPHRINE 8 MG/250 ML-D5W 250 ML IVPB SCH (12:56)
[2024-03-07] MEDS: Hydrocortisone Sod Succ/PF 100 mg/2 ml Vial IVP SCH ×2 (12:58→18:23)
[2024-03-07 14:03] LABS: Anion Gap 12 mmol/L (10-20); BUN (Urea Nitrogen) 53 mg/dL (8.4-25.7); Calc. Creatinine Clearance 21 mL/min (70-130); Calcium 7.4 mg/dL (7.8-10.44); Carbon Dioxide 8 mmol/L (23-31); Chloride 116 mmol/L (98-107); Estimated GFR 26; Glucose 121 mg/dL (83-110); Potassium 6.2 mmol/L (3.5-5.1); Sodium 130 mmol/L (136-145)
[2024-03-07] MEDS ORDERED: Dextrose 50% Abboject 50 ML SYRINGE SLOW IVP PRN (14:15)
[2024-03-07] MEDS: Sodium Bicarb 50 mEq/50 ML VIAL IVP SCH (14:35)
[2024-03-07] MEDS: Dextrose 50% Abboject 50 ML SYRINGE SLOW IVP SCH (15:24)
[2024-03-07] MEDS: Insulin Regular, Human 100 UNIT/ML 10 ML VIAL IVP SCH (15:25)
[2024-03-07] MEDS: Sodium Bicarbonate 150 MEQ in Dextrose 5% in Water 1,000 ML IVP SCH ×2 (15:30→16:53)
[2024-03-07] MEDS: Cefepime 1 GM in Sodium Chloride 0.9% 100 ML IVPB SCH (20:30)
[2024-03-07 21:27] LABS: Anion Gap 14 mmol/L (10-20); BUN (Urea Nitrogen) 49 mg/dL (8.4-25.7); Calc. Creatinine Clearance 25 mL/min (70-130); Calcium 7.5 mg/dL (7.8-10.44); Carbon Dioxide 11 mmol/L (23-31); Chloride 117 mmol/L (98-107); Estimated GFR 32; Glucose 157 mg/dL (83-110); Sodium 137 mmol/L (136-145)
[2024-03-08 04:14] LABS: #Basophils Less than 0.03 10x3/uL (0.0-0.2); #Eosinophils Less than 0.03 10x3/uL (0.0-0.7); %Lymphocytes 9.7 % (21.0-51.0); %Monocytes 10.5 % (0.0-10.0); %Neutrophils 79.1 % (42.0-75.0); Hematocrit 22.3 % (42.0-52.0); Hemoglobin 7.7 g/dL (14.0-18.0); Mean Corpuscular HGB CONC 34.5 g/dL (32.0-36.0); Mean Corpuscular Hemoglobin 37.2 pg (27.0-31.0); Mean Corpuscular Volume 107.7 fL (78.0-98.0); Mean Platelet Volume 10.8 fL (7.4-10.4); Platelet Count 122 10x3/uL (130-400); Red Blood Cell (RBC) Count 2.07 mill/uL (4.70-6.10)
[2024-03-08 04:38] LABS: Anion Gap 12 mmol/L (10-20); BUN (Urea Nitrogen) 35 mg/dL (8.4-25.7); Calc. Creatinine Clearance 32 mL/min (70-130); Calcium 7.7 mg/dL (7.8-10.44); Carbon Dioxide 15 mmol/L (23-31); Chloride 113 mmol/L (98-107); Estimated GFR 42; Glucose 152 mg/dL (83-110); Potassium 4.3 mmol/L (3.5-5.1); Sodium 136 mmol/L (136-145)
[2024-03-08] MEDS: Famotidine 20 MG TAB PO SCH (09:23)
[2024-03-08] MEDS: Sodium Bicarbonate 150 MEQ in Dextrose 5% in Water 1,000 ML IV SCH (14:24)
[2024-03-09 06:02] LABS: Anion Gap 9 mmol/L (10-20); BUN (Urea Nitrogen) 25 mg/dL (8.4-25.7); Calc. Creatinine Clearance 43 mL/min (70-130); Calcium 7.7 mg/dL (7.8-10.44); Carbon Dioxide 31 mmol/L (23-31); Chloride 102 mmol/L (98-107); Estimated GFR 62; Glucose 163 mg/dL (83-110); Potassium 3.5 mmol/L (3.5-5.1); Sodium 138 mmol/L (136-145)
[2024-03-09 06:17] LABS: #Basophils Less than 0.03 10x3/uL (0.0-0.2); #Eosinophils Less than 0.03 10x3/uL (0.0-0.7); %Lymphocytes 9.1 % (21.0-51.0); %Monocytes 8.6 % (0.0-10.0); %Neutrophils 81.9 % (42.0-75.0); Hematocrit 20.7 % (42.0-52.0); Hemoglobin 7.1 g/dL (14.0-18.0); Mean Corpuscular HGB CONC 34.3 g/dL (32.0-36.0); Mean Corpuscular Hemoglobin 36.6 pg (27.0-31.0); Mean Corpuscular Volume 106.7 fL (78.0-98.0); Mean Platelet Volume 10.8 fL (7.4-10.4); Platelet Count 126 10x3/uL (130-400); RBC Distribution Width 13.1 % (11.5-14.5); Red Blood Cell (RBC) Count 1.94 mill/uL (4.70-6.10)
[2024-03-09] MEDS: Hydrocortisone Sod Succ/PF 100 mg/2 ml Vial IVP SCH (18:38)
[2024-03-09] MEDS: Lactated Ringer's 500 ML IV SCH (19:21)
[2024-03-10] MEDS: Hydrocortisone Sod Succ/PF 100 mg/2 ml Vial IVP SCH (08:48)
[2024-03-10] MEDS: Cholecalciferol (Vitamin D3) 400 UNITS TAB PO SCH (08:48)
[2024-03-11 04:36] LABS: ALT (SGPT) 22 U/L (8-55); AST (SGOT) 23 U/L (5-34); Albumin 2.5 g/dL (3.4-4.8); Alkaline Phosphatase 32 U/L (40-110); Bilirubin, Direct 0.2 mg/dL (0.1-0.3); Bilirubin, Total 0.5 mg/dL (0.2-1.2); Iron 142 ug/dL (65-175); Protein, Total 4.7 g/dL (5.8-8.1)
[2024-03-11 04:59] LABS: Ferritin 424.83 ng/mL (22-322)
[2024-03-11] MEDS: Famotidine 20 MG TAB PO SCH (08:11)
[2024-03-11] MEDS: Tamsulosin HCl 0.4 MG CAP PO SCH (08:44)
[2024-03-11] MEDS: Midodrine HCl 5 MG TAB PO SCH (08:44)
[2024-03-11] MEDS: Aspirin 81 mg Enteric Coated Tablet PO SCH (08:44)
[2024-03-11] MEDS: Bisacodyl 5 MG TAB PO SCH (11:36)
[2024-03-11] MEDS: Polyethylene Glycol 3350 17 GM Packet PO SCH (11:36)
[2024-03-11] MEDS: Senokot S 8.6-50 MG TAB PO SCH ×2 (11:36→20:06)
[2024-03-11] MEDS: Rosuvastatin 20 MG TAB PO SCH (20:06)
[2024-03-12 05:32] LABS: #Basophils Less than 0.03 10x3/uL (0.0-0.2); %Basophils 0.1 % (0.0-1.0); %Eosinophils 0.6 % (0.0-10.0); %Lymphocytes 12.7 % (21.0-51.0); %Monocytes 14.6 % (0.0-10.0); Hematocrit 22.9 % (42.0-52.0); Hemoglobin 7.5 g/dL (14.0-18.0); Mean Corpuscular HGB CONC 32.8 g/dL (32.0-36.0); Mean Corpuscular Hemoglobin 36.9 pg (27.0-31.0); Mean Corpuscular Volume 112.8 fL (78.0-98.0); Mean Platelet Volume 11.1 fL (7.4-10.4); Platelet Count 113 10x3/uL (130-400); RBC Distribution Width 13.1 % (11.5-14.5); Red Blood Cell (RBC) Count 2.03 mill/uL (4.70-6.10)
[2024-03-12 06:02] LABS: Macrocytosis SLIGHT = 6-15 cells HPF (0-5); Platelet Adequacy Comment Platelets Decreased
[2024-03-12 06:04] LABS: Anion Gap 10 mmol/L (10-20); BUN (Urea Nitrogen) 25 mg/dL (8.4-25.7); Calc. Creatinine Clearance 44 mL/min (70-130); Calcium 7.7 mg/dL (7.8-10.44); Carbon Dioxide 29 mmol/L (23-31); Chloride 101 mmol/L (98-107); Estimated GFR 55; Glucose 94 mg/dL (83-110); Potassium 3.8 mmol/L (3.5-5.1); Sodium 136 mmol/L (136-145)
[2024-03-12] MEDS: Polyethylene Glycol 3350 17 GM Packet PO SCH (08:56)
[2024-03-12] MEDS: Cyanocobalamin (Vitamin B-12) 1,000 MCG TAB PO SCH (09:01)
[2024-03-12] MEDS: Midodrine HCl 5 MG TAB PO SCH (11:14)
[2024-03-12] MEDS: Pantoprazole DR 40 MG TAB PO SCH (20:17)
[2024-03-13 11:24] LABS: #Basophils Less than 0.03 10x3/uL (0.0-0.2); %Basophils 0.1 % (0.0-1.0); %Eosinophils 0.5 % (0.0-10.0); %Lymphocytes 6.8 % (21.0-51.0); %Monocytes 12.7 % (0.0-10.0); %Neutrophils 79.1 % (42.0-75.0); Hematocrit 27.1 % (42.0-52.0); Hemoglobin 8.7 g/dL (14.0-18.0); Mean Corpuscular HGB CONC 32.8 g/dL (32.0-36.0); Mean Corpuscular Volume 112.8 fL (78.0-98.0); Mean Platelet Volume 11.6 fL (7.4-10.4); Platelet Count 115 10x3/uL (130-400); RBC Distribution Width 13.2 % (11.5-14.5); Red Blood Cell (RBC) Count 2.43 mill/uL (4.70-6.10)
[2024-03-13 11:49] LABS: Band 2 % (5-11); Eosinophils 1 % (0-10); Lymphocytes 6 % (21-51); Macrocytosis SLIGHT = 6-15 cells HPF (0-5); Monocytes 7 % (0-10); Neutrophil 84 % (42-75); Platelet Adequacy Comment Platelets Decreased; Polychromasia SLIGHT = 2-3 cells HPF (0-2)
[2024-03-14] MEDS: Pantoprazole DR 40 MG TAB PO SCH (08:50)
[2024-03-14 10:13] LABS: Hematocrit 25.7 % (42.0-52.0); Hemoglobin 8.2 g/dL (14.0-18.0); Mean Corpuscular HGB CONC 31.9 g/dL (32.0-36.0); Mean Corpuscular Hemoglobin 36.9 pg (27.0-31.0); Mean Corpuscular Volume 115.8 fL (78.0-98.0); Mean Platelet Volume 11.6 fL (7.4-10.4); Platelet Count 116 10x3/uL (130-400); RBC Distribution Width 13.2 % (11.5-14.5); Red Blood Cell (RBC) Count 2.22 mill/uL (4.70-6.10)
[2024-03-14 10:55] LABS: #Basophils Less than 0.03 10x3/uL (0.0-0.2); %Basophils 0.3 % (0.0-1.0); %Eosinophils 0.8 % (0.0-10.0); %Lymphocytes 12.3 % (21.0-51.0); %Monocytes 11.6 % (0.0-10.0); %Neutrophils 74.5 % (42.0-75.0)
[2024-03-14 12:17] LABS: Heparin-Induced Ab (HITA) 0.055 OD (0.000-0.400)
[2024-03-14] MEDS: Fludrocortisone Acetate 0.1 MG TAB PO SCH (18:40)
[2024-03-15 07:42] LABS: #Basophils Less than 0.03 10x3/uL (0.0-0.2); %Basophils 0.2 % (0.0-1.0); %Eosinophils 1.1 % (0.0-10.0); %Lymphocytes 17.6 % (21.0-51.0); %Monocytes 14.6 % (0.0-10.0); %Neutrophils 65.5 % (42.0-75.0); Hematocrit 21.1 % (42.0-52.0); Hemoglobin 6.9 g/dL (14.0-18.0); Mean Corpuscular HGB CONC 32.7 g/dL (32.0-36.0); Mean Corpuscular Hemoglobin 36.9 pg (27.0-31.0); Mean Corpuscular Volume 112.8 fL (78.0-98.0); Mean Platelet Volume 11.3 fL (7.4-10.4); Platelet Count 132 10x3/uL (130-400); RBC Distribution Width 13.2 % (11.5-14.5); Red Blood Cell (RBC) Count 1.87 mill/uL (4.70-6.10)
[2024-03-15] MEDS: Fludrocortisone Acetate 0.1 MG TAB PO SCH (09:27)
[2024-03-15 14:52] VITALS: BP 115/65; TEMP 97.3
[2024-03-15 14:59] VITALS: BMI 27.1
== END 2024-03-15 19:14 | DRG 643 ==
LOC: ERS 03:38 → CCU 08:57 → T4-A 03-08 17:09
PROVIDERS: ADMIT Student in an Organized Health Care Education/Training Program; ATTEND Hospitalist
DX: E27.40 Unspecified adrenocortical insufficiency (principal); R57.1 Hypovolemic shock; N17.9 Acute kidney failure, unspecified; I48.20 Chronic atrial fibrillation, unspecified; E87.1 Hypo-osmolality and hyponatremia; E87.20 Acidosis, unspecified; E86.1 Hypovolemia; N18.9 Chronic kidney disease, unspecified; E78.5 Hyperlipidemia, unspecified; N40.0 Benign prostatic hyperplasia without lower urinary tract symptoms; Z87.891 Personal history of nicotine dependence; E87.5 Hyperkalemia; F03.90 Unspecified dementia, unspecified severity, without behavioral disturbance, psychotic disturbance, mood disturbance, and anxiety; D53.9 Nutritional anemia, unspecified; Z90.49 Acquired absence of other specified parts of digestive tract; Z98.890 Other specified postprocedural states; K52.9 Noninfective gastroenteritis and colitis, unspecified; I44.30 Unspecified atrioventricular block; Z79.01 Long term (current) use of anticoagulants; Z79.82 Long term (current) use of aspirin; I12.9 Hypertensive chronic kidney disease with stage 1 through stage 4 chronic kidney disease, or unspecified chronic kidney disease
CPT/HCPCS: 36415; 36416; 36430; 51702; 70450; 71045; 72125; 80048; 80053; 80076; 81001; 82274; 82306; 82533; 82607; 82728; 83540; 83605; 83690; 83880; 84145; 84443; 84484; 85025; 85046; 85610; 85730; 86141; 86850; 86900; 86901; 87040; 93005; 93306; 96365; 96366; 96368; 96375; J0613; J0692; J1644; J1720; J1815; J2405; J3370; J7030; J7070; J7120; J7999; P9016

== ENCOUNTER 2024-03-30 10:33 | Inpatient (IN) | payer MEDICARE, OTHER ==
[2024-03-30] MEDS ORDERED: Furosemide 40 MG (4 mL) VIAL ONE (11:28)
[2024-03-30 11:36] LABS: #Basophils Less than 0.03 10x3/uL (0.0-0.2); %Basophils 0.3 % (0.0-1.0); %Eosinophils 0.5 % (0.0-10.0); %Lymphocytes 20.1 % (21.0-51.0); %Monocytes 12.6 % (0.0-10.0); %Neutrophils 66.2 % (42.0-75.0); Hematocrit 24.6 % (42.0-52.0); Hemoglobin 7.7 g/dL (14.0-18.0); Mean Corpuscular HGB CONC 31.3 g/dL (32.0-36.0); Mean Platelet Volume 10.1 fL (7.4-10.4); Platelet Count 180 10x3/uL (130-400); RBC Distribution Width 15.9 % (11.5-14.5); Red Blood Cell (RBC) Count 2.14 mill/uL (4.70-6.10)
[2024-03-30 11:39] LABS: Troponin I 0.046 ng/mL (< 0.028)
[2024-03-30 11:56] LABS: ALT (SGPT) 11 U/L (8-55); AST (SGOT) 13 U/L (5-34); Albumin 2.6 g/dL (3.4-4.8); Alkaline Phosphatase 47 U/L (40-110); Anion Gap 10 mmol/L (10-20); BUN (Urea Nitrogen) 16 mg/dL (8.4-25.7); Bilirubin, Total 0.5 mg/dL (0.2-1.2); Calc. Creatinine Clearance 0 mL/min (70-130); Calcium 8.1 mg/dL (7.8-10.44); Carbon Dioxide 25 mmol/L (23-31); Estimated GFR 69; Glucose 119 mg/dL (83-110); Potassium 3.3 mmol/L (3.5-5.1); Protein, Total 5.6 g/dL (5.8-8.1)
[2024-03-30 12:17] LABS: Chloride 112 mmol/L (98-107); Sodium 144 mmol/L (136-145)
[2024-03-30] MEDS ORDERED: Aspirin Chewable 81 MG TAB ONE (12:33)
[2024-03-30] MEDS ORDERED: Sodium Chloride 0.9% 100 ML ONE (12:34)
[2024-03-30] MEDS ORDERED: Cefepime 2 GM VIAL ONE (12:34)
[2024-03-30 13:26] LABS: Bacteria/HPF None Seen HPF (None Seen); Bilirubin Negative (Negative); Blood, Urine Negative (Negative); CAUTI Indications for Culture Dysuria,urgency,freq; Clarity Clear (Clear); Glucose, Urine (Dipstick) Normal (Negative); Ketone, Urine Negative (Negative); Leukocyte Negative Leu/uL (Negative); Nitrite Negative (Negative); Protein, Urine (Dipstick) Negative (Neg-Trace); RBC/HPF 0-3 HPF (0-3); Specific Gravity, Urine 1.007 (1.002-1.036); Squamous Epithelial None Seen HPF (0-3); Urobilinogen Normal mg/dL (Less than 2); WBC/HPF 0-3 HPF (0-3); pH, Urine 5.5 (5.0-9.0)
[2024-03-30 13:31] LABS: Urine Culture Reflex No No
[2024-03-30] MEDS ORDERED: Senokot S 8.6-50 MG TAB PO PRN (14:25)
[2024-03-30] MEDS ORDERED: Ondansetron PF 4 MG/2 ML Vial IVP PRN (14:25)
[2024-03-30] MEDS ORDERED: Guaifenesin DM 100-10/5 ML UDCUP PO PRN (14:25)
[2024-03-30] MEDS ORDERED: Calcium Carbonate 500 MG ChewTAB PO PRN (14:25)
[2024-03-30] MEDS ORDERED: Ondansetron ODT 4 MG TAB PO PRN (14:25)
[2024-03-30 15:13] LABS: Troponin I 0.053 ng/mL (< 0.028)
[2024-03-30 18:37] VITALS: BMI 30.2
[2024-03-30 19:23] LABS: Troponin I 0.046 ng/mL (< 0.028)
[2024-03-30] MEDS: Potassium Chloride 20 MEQ TAB PO SCH (19:33)
[2024-03-30] MEDS: cefTRIAXone\\ROCEPHIN 1 GM in Sodium Chloride 0.9% 100 ML IVPB SCH (21:05)
[2024-03-30] MEDS: metroNIDAZOLE 500 MG TAB PO SCH (21:06)
[2024-03-30] MEDS: Rosuvastatin 20 MG TAB PO SCH (21:06)
[2024-03-30] MEDS: Donepezil HCl 10 MG TAB PO SCH (21:06)
[2024-03-30] MEDS: Azithromycin 500 MG in Sodium Chloride 0.9% 250 ML 250 ML IVPB SCH (23:40)
[2024-03-31 03:35] LABS: Legionella Urinary Ag Negative (Negative); Strep pneumo Urine Ag NEGATIVE (NEGATIVE)
[2024-03-31 04:50] LABS: #Basophils Less than 0.03 10x3/uL (0.0-0.2); %Basophils 0.2 % (0.0-1.0); %Eosinophils 0.9 % (0.0-10.0); %Lymphocytes 20.6 % (21.0-51.0); %Monocytes 13.6 % (0.0-10.0); %Neutrophils 64.5 % (42.0-75.0); Hematocrit 23.4 % (42.0-52.0); Hemoglobin 7.3 g/dL (14.0-18.0); Mean Corpuscular HGB CONC 31.2 g/dL (32.0-36.0); Mean Corpuscular Volume 115.3 fL (78.0-98.0); Mean Platelet Volume 10.2 fL (7.4-10.4); Platelet Count 175 10x3/uL (130-400); RBC Distribution Width 15.7 % (11.5-14.5); Red Blood Cell (RBC) Count 2.03 mill/uL (4.70-6.10)
[2024-03-31 04:51] LABS: Anion Gap 13 mmol/L (10-20); BUN (Urea Nitrogen) 15 mg/dL (8.4-25.7); Calc. Creatinine Clearance 57 mL/min (70-130); Calcium 7.7 mg/dL (7.8-10.44); Carbon Dioxide 24 mmol/L (23-31); Chloride 111 mmol/L (98-107); Estimated GFR 68; Glucose 86 mg/dL (83-110); Potassium 2.9 mmol/L (3.5-5.1); Sodium 145 mmol/L (136-145)
[2024-03-31] MEDS ORDERED: Pantoprazole DR 40 MG TAB PO SCH (09:00)
[2024-03-31] MEDS: Ferrous Sulfate 300 MG (5 mL) UDCUP PO SCH (09:00)
[2024-03-31] MEDS: Enoxaparin 30 MG (0.3 mL) SYRINGE SC SCH (09:00)
[2024-03-31] MEDS: BuPROPion XL 150 MG ER.TAB PO SCH (09:00)
[2024-03-31] MEDS: Tamsulosin HCl 0.4 MG CAP PO SCH (09:00)
[2024-03-31] MEDS: Fludrocortisone Acetate 0.1 MG TAB PO SCH (09:00)
[2024-03-31] MEDS: Potassium Chloride 20 MEQ TAB PO SCH (09:01)
[2024-03-31] MEDS: Furosemide 40 MG (4 mL) VIAL SLOW IVP SCH ×2 (09:01→13:05)
[2024-03-31] MEDS: Gabapentin 100 MG CAP PO SCH (09:01)
[2024-03-31] MEDS: Aspirin 81 mg Enteric Coated Tablet PO SCH (09:01)
[2024-03-31] MEDS: FLU (Fluad Triv) TS24-25 (65UP)/MF59C/PF 45 MCG/0.5 ML Syringe IM ONE (11:49)
[2024-03-31] MEDS: Ipratropium/Albuterol 3 ML NEB NEB SCH (14:48)
[2024-03-31] MEDS: Spironolactone 100 MG TAB PO SCH (16:16)
[2024-04-01] MEDS: Ipratropium/Albuterol 3 ML NEB ONE (00:47)
[2024-04-01 06:52] LABS: #Basophils Less than 0.03 10x3/uL (0.0-0.2); %Basophils 0.5 % (0.0-1.0); %Eosinophils 1.5 % (0.0-10.0); %Lymphocytes 27.3 % (21.0-51.0); %Monocytes 15.9 % (0.0-10.0); %Neutrophils 54.5 % (42.0-75.0); Hematocrit 23.6 % (42.0-52.0); Hemoglobin 7.5 g/dL (14.0-18.0); Mean Corpuscular HGB CONC 31.8 g/dL (32.0-36.0); Mean Corpuscular Hemoglobin 35.9 pg (27.0-31.0); Mean Corpuscular Volume 112.9 fL (78.0-98.0); Mean Platelet Volume 10.1 fL (7.4-10.4); Platelet Count 180 10x3/uL (130-400); RBC Distribution Width 15.8 % (11.5-14.5); Red Blood Cell (RBC) Count 2.09 mill/uL (4.70-6.10)
[2024-04-01 07:25] LABS: Anion Gap 11 mmol/L (10-20); BUN (Urea Nitrogen) 15 mg/dL (8.4-25.7); Calc. Creatinine Clearance 58 mL/min (70-130); Calcium 8.3 mg/dL (7.8-10.44); Carbon Dioxide 28 mmol/L (23-31); Chloride 107 mmol/L (98-107); Estimated GFR 70; Glucose 90 mg/dL (83-110); Potassium 3.4 mmol/L (3.5-5.1); Sodium 143 mmol/L (136-145)
[2024-04-01] MEDS: Enoxaparin 40 MG (0.4 mL) SYRINGE SC SCH (08:59)
[2024-04-01] MEDS: Spironolactone 100 MG TAB PO SCH (08:59)
[2024-04-01] MEDS: Potassium Chloride 20 MEQ TAB PO SCH ×2 (12:19→16:18)
[2024-04-02 04:39] LABS: #Basophils Less than 0.03 10x3/uL (0.0-0.2); %Basophils 0.6 % (0.0-1.0); %Eosinophils 1.9 % (0.0-10.0); %Lymphocytes 31.2 % (21.0-51.0); %Monocytes 16.2 % (0.0-10.0); %Neutrophils 49.5 % (42.0-75.0); Hematocrit 23.4 % (42.0-52.0); Hemoglobin 7.4 g/dL (14.0-18.0); Mean Corpuscular HGB CONC 31.6 g/dL (32.0-36.0); Mean Corpuscular Hemoglobin 35.2 pg (27.0-31.0); Mean Corpuscular Volume 111.4 fL (78.0-98.0); Mean Platelet Volume 10.5 fL (7.4-10.4); Platelet Count 195 10x3/uL (130-400); RBC Distribution Width 15.9 % (11.5-14.5)
[2024-04-02 04:51] LABS: Anion Gap 14 mmol/L (10-20); BUN (Urea Nitrogen) 16 mg/dL (8.4-25.7); Calc. Creatinine Clearance 52 mL/min (70-130); Calcium 8.4 mg/dL (7.8-10.44); Carbon Dioxide 28 mmol/L (23-31); Chloride 104 mmol/L (98-107); Estimated GFR 60; Glucose 90 mg/dL (83-110); Potassium 4.2 mmol/L (3.5-5.1); Sodium 142 mmol/L (136-145)
[2024-04-02] MEDS: Cefdinir 300 MG CAP PO SCH (08:54)
[2024-04-03 03:51] LABS: #Basophils 0.03 10x3/uL (0.0-0.2); %Basophils 0.8 % (0.0-1.0); %Eosinophils 1.6 % (0.0-10.0); %Lymphocytes 28.4 % (21.0-51.0); %Monocytes 16.3 % (0.0-10.0); %Neutrophils 52.1 % (42.0-75.0); Hematocrit 24.8 % (42.0-52.0); Hemoglobin 7.8 g/dL (14.0-18.0); Mean Corpuscular HGB CONC 31.5 g/dL (32.0-36.0); Mean Corpuscular Hemoglobin 35.5 pg (27.0-31.0); Mean Corpuscular Volume 112.7 fL (78.0-98.0); Platelet Count 189 10x3/uL (130-400); RBC Distribution Width 15.5 % (11.5-14.5)
[2024-04-03 03:57] LABS: Anion Gap 14 mmol/L (10-20); BUN (Urea Nitrogen) 19 mg/dL (8.4-25.7); Calc. Creatinine Clearance 50 mL/min (70-130); Calcium 8.8 mg/dL (7.8-10.44); Carbon Dioxide 29 mmol/L (23-31); Chloride 101 mmol/L (98-107); Estimated GFR 58; Glucose 96 mg/dL (83-110); Potassium 4.2 mmol/L (3.5-5.1); Sodium 140 mmol/L (136-145)
[2024-04-03] MEDS: Acetaminophen 325 MG TAB PO PRN (05:13)
[2024-04-03 16:01] VITALS: BP 109/55; TEMP 98.8
== END 2024-04-03 20:24 | DRG 280 ==
LOC: ERS 10:33 → 2NO 14:24
PROVIDERS: ADMIT Family Medicine; ATTEND Internal Medicine
DX: I21.4 Non-ST elevation (NSTEMI) myocardial infarction (principal); I50.33 Acute on chronic diastolic (congestive) heart failure; J18.9 Pneumonia, unspecified organism; E27.40 Unspecified adrenocortical insufficiency; E78.5 Hyperlipidemia, unspecified; N40.0 Benign prostatic hyperplasia without lower urinary tract symptoms; I11.0 Hypertensive heart disease with heart failure; F03.B0 Unspecified dementia, moderate, without behavioral disturbance, psychotic disturbance, mood disturbance, and anxiety; N28.9 Disorder of kidney and ureter, unspecified; I48.0 Paroxysmal atrial fibrillation; E87.6 Hypokalemia; Z95.0 Presence of cardiac pacemaker; Z79.899 Other long term (current) drug therapy; Z86.79 Personal history of other diseases of the circulatory system; Z79.82 Long term (current) use of aspirin; Z88.0 Allergy status to penicillin; Z90.49 Acquired absence of other specified parts of digestive tract
CPT/HCPCS: 36415; 71045; 80048; 80053; 81001; 83605; 83880; 84145; 84484; 85025; 87428; 87449; 87899; 93005; 93010; 94640; 94760; 96374; 96375; J0456; J0692; J0696; J1650; J1940; J7050; J7620

== ENCOUNTER 2024-05-22 05:41 | Emergency (ER) | payer MEDICARE, OTHER ==
[2024-05-22] MEDS ORDERED: Morphine 4 MG/ML VIAL ONE (06:00)
[2024-05-22 06:36] LABS: ALT (SGPT) 8 U/L (Less than 45); AST (SGOT) 24 U/L (11-34); Albumin 3.5 g/dL (3.1-4.5); Alkaline Phosphatase 58 U/L (40-110); Anion Gap 14 mmol/L (10-20); BUN (Urea Nitrogen) 25 mg/dL (8.4-25.7); Bilirubin, Total 0.7 mg/dL (0.3-1.2); CK (CPK) 35 U/L (30-200); Calc. Creatinine Clearance 0 mL/min (70-130); Calcium 9.4 mg/dL (7.8-10.44); Carbon Dioxide 24 mmol/L (23-31); Chloride 108 mmol/L (98-107); Estimated GFR 44; Globulin 3.6 g/dL (2.4-3.5); Glucose 107 mg/dL (83-110); Potassium 3.8 mmol/L (3.5-5.1); Protein, Total 7.1 g/dL (5.8-8.1); Sodium 142 mmol/L (136-145)
[2024-05-22 07:19] LABS: #Basophils 0.03 10x3/uL (0.0-0.2); %Basophils 0.4 % (0.0-1.0); %Eosinophils 0.4 % (0.0-10.0); %Neutrophils 70.8 % (42.0-75.0); Hematocrit 28.9 % (42.0-52.0); Hemoglobin 9.3 g/dL (14.0-18.0); Mean Corpuscular HGB CONC 32.2 g/dL (32.0-36.0); Mean Corpuscular Hemoglobin 36.3 pg (27.0-31.0); Mean Corpuscular Volume 112.9 fL (78.0-98.0); Mean Platelet Volume 11.2 fL (7.4-10.4); Platelet Count 161 10x3/uL (130-400); RBC Distribution Width 13.4 % (11.5-14.5); Red Blood Cell (RBC) Count 2.56 mill/uL (4.70-6.10)
[2024-05-22 07:51] LABS: Anisocytosis SLIGHT = 6-15 cells HPF (0-5); Eosinophils 2 % (0-10); Lymphocytes 17 % (21-51); Macrocytosis MODERATE=16-30 cells HPF (0-5); Monocytes 17 % (0-10); Neutrophil 64 % (42-75); Platelet Adequacy Comment Platelets Normal; Polychromasia SLIGHT = 2-3 cells HPF (0-2); Stomatocytes SLIGHT = 2-5 cells HPF (0-1)
== END 2024-05-22 08:30 | disposition home or self-care (01) ==
LOC: ERS 05:41
DX: M79.89 Other specified soft tissue disorders (principal); F17.210 Nicotine dependence, cigarettes, uncomplicated; I10 Essential (primary) hypertension; E78.5 Hyperlipidemia, unspecified; Z79.82 Long term (current) use of aspirin; Z79.899 Other long term (current) drug therapy
CPT/HCPCS: 73110; 80053; 82550; 85025; 86141; J2270; 96374